=== PATIENT | female | born 1990 | race Caucasian/White ===

== ENCOUNTER 2017-12-13 22:42 | Emergency (ER) | payer OTHER | END 2017-12-14 01:22 | disposition home or self-care (01) | LOC: FTE 22:42 | DX: L72.3 Sebaceous cyst (principal) | CPT/HCPCS: 99283; Z7502 ==

== ENCOUNTER 2018-01-19 21:53 | Emergency (ER) | payer OTHER ==
[2018-01-20] MEDS: ACETAMINOPHEN 325 MG TAB PO (02:41)
[2018-01-20] MEDS: KETOROLAC 60 MG INJ IM (02:45)
== END 2018-01-20 02:54 | disposition home or self-care (01) ==
LOC: FTE 21:53
DX: J20.9 Acute bronchitis, unspecified (principal)
CPT/HCPCS: 81025; 99283

== ENCOUNTER 2018-01-23 18:31 | Emergency (ER) | payer OTHER | END 2018-01-23 21:59 | disposition home or self-care (01) | LOC: FTE 18:31 | DX: J02.9 Acute pharyngitis, unspecified (principal) | CPT/HCPCS: 87880; 99283 ==

== ENCOUNTER 2018-02-25 16:37 | Emergency (ER) | payer OTHER ==
[2018-02-25] MEDS ORDERED: ACETAMINOPHEN 325 MG TAB (17:08)
[2018-02-25] MEDS: ACETAMINOPHEN 500 MG TAB PO (17:11)
== END 2018-02-25 17:49 | disposition home or self-care (01) ==
LOC: FTE 16:37
DX: J06.9 Acute upper respiratory infection, unspecified (principal); J02.9 Acute pharyngitis, unspecified; B34.9 Viral infection, unspecified
CPT/HCPCS: 81025; 99283

== ENCOUNTER 2018-04-08 10:12 | Emergency (ER) | payer OTHER | END 2018-04-08 11:12 | disposition home or self-care (01) | LOC: FTE 10:12 | DX: J00 Acute nasopharyngitis [common cold] (principal); L29.9 Pruritus, unspecified | CPT/HCPCS: 99284; Z7502 ==

== ENCOUNTER 2018-04-11 23:23 | Emergency (ER) | payer OTHER | END 2018-04-12 00:48 | disposition home or self-care (01) | LOC: FTE 23:23 | DX: J40 Bronchitis, not specified as acute or chronic (principal) | CPT/HCPCS: 99283; Z7502 ==

== ENCOUNTER 2018-05-26 14:23 | Emergency (ER) | payer OTHER ==
[2018-05-26 17:40] LABS: ADD UMIC YES; UR AMORPHOUS CRYSTAL MANY /HPF (NONE SEEN); UR ASCORBIC ACID 20 mg/dL (NEGATIVE); UR BACTERIA FEW /HPF (NONE SEEN); UR BILIRUBIN (Dip) NEGATIVE (NEGATIVE); UR BLOOD (Dip) 3+ mg/dL (NEGATIVE); UR CLARITY TURBID (CLEAR); UR COLOR YELLOW (YELLOW); UR GLUCOSE (Dip) NEGATIVE (NEGATIVE); UR KETONES (Dip) NEGATIVE (NEGATIVE); UR LEUKOCYTE ESTERASE (Dip) 3+ Leu/ul (NEGATIVE); UR NITRITE (Dip) NEGATIVE (NEGATIVE); UR RBC 8 /HPF (0-5); UR SPECIFIC GRAVITY (Dip) 1.019 (1.003-1.030); UR SQUAMOUS EPITHELIAL CELL MANY /HPF (FEW); UR TOTAL PROTEIN (Dip) NEGATIVE (NEGATIVE); UR UROBILINOGEN (Dip) NEGATIVE (NEGATIVE); UR WBC 80 /HPF (0-5)
== END 2018-05-26 19:06 | disposition home or self-care (01) ==
LOC: FTE 14:23
DX: F41.9 Anxiety disorder, unspecified (principal)
CPT/HCPCS: 71045; 81001; 81025; 99284-25

== ENCOUNTER 2018-11-30 17:58 | Emergency (ER) | payer OTHER | END 2018-11-30 20:38 | disposition home or self-care (01) | LOC: FTE 20:38 | DX: F41.9 Anxiety disorder, unspecified (principal) | CPT/HCPCS: 99282 ==

== ENCOUNTER 2019-01-27 14:26 | Emergency (ER) | payer OTHER | END 2019-01-27 17:55 | disposition home or self-care (01) | LOC: FTE 14:26 | DX: F41.9 Anxiety disorder, unspecified (principal) | CPT/HCPCS: 81025; 82962; 93005; 99283-25 ==

== ENCOUNTER 2019-02-27 12:02 | Emergency (ER) | payer OTHER ==
[2019-02-27] MEDS: KETOROLAC 60 MG INJ IM (14:17)
== END 2019-02-27 16:27 | disposition left against medical advice (07) ==
LOC: FTE 12:02
DX: N64.4 Mastodynia (principal); J02.9 Acute pharyngitis, unspecified; Z76.0 Encounter for issue of repeat prescription
CPT/HCPCS: 76642; 81025; 87880; 96372; 99285-25